=== PATIENT | male | born 2000 | race African-American/Black ===

== ENCOUNTER 2019-08-20 13:55 | Emergency (ER) | payer MEDICAID ==
[~2019-08-20] VITALS: Ht 175.3 cm; Wt 52.3 kg
[2019-08-20 14:14] VITALS: BP 116/70
[2019-08-20 14:39] LABS: GLUCOSE,POINT OF CARE 90 MG/DL (70-110)
[2019-08-20 14:59] LABS: BASOPHILS % (AUTO) 0.9 % (0.0-2.0); EOSINOPHILS % (AUTO) 3.4 % (1.0-6.0); HEMOGLOBIN 13.9 g/dL (13.5-17.5); LYMPHOCYTES # (AUTO) 2.4 K/uL (1.0-4.8); LYMPHOCYTES % (AUTO) 38.7 % (22.0-44.0); MEAN CORPUSCULAR HEMOGLOBIN 28.5 pg (26.0-34.0); MEAN CORPUSCULAR HGB CONC 32.4 G/dL (31.0-37.0); MEAN CORPUSCULAR VOLUME 88 fL (80-100); MONOCYTES # (AUTO) 0.6 K/uL (0.1-1.0); MONOCYTES % (AUTO) 9.3 % (2.0-9.0); NEUTROPHILS % (AUTO) 47.7 % (40.0-70.0); PLATELET COUNT (AUTO) 440 K/uL (150-450); RED CELL DISTRIBUTION WIDTH 15.7 % (11.5-14.5)
[2019-08-20 15:16] LABS: ANION GAP 12 mmol/L (8-16); CALCIUM, TOTAL 9.2 mg/dL (8.8-10.5); CARBON DIOXIDE 24 mmol/L (22-29); CHLORIDE 105 mmol/L (98-107); CREATININE 0.88 mg/dL (0.60-1.30); GLOMERULAR FILTR. RATE CALC > 60 mL/min (>60); GLUCOSE,RANDOM 75 mg/dL (70-110); POTASSIUM 3.6 mmol/L (3.5-5.1); SODIUM SERUM 141 mmol/L (136-145); UREA NITROGEN, BLOOD 20 mg/dL (7-18)
[2019-08-20 15:21] LABS: ALANINE AMINOTRANSFERASE 24 U/L (12-78); ALBUMIN 4.3 g/dL (3.4-5.0); ALKALINE PHOSPHATASE 110 U/L (46-116); ASPARTATE AMINOTRANSFERASE 31 U/L (15-37); BILIRUBIN,TOTAL 0.6 mg/dL (0.1-1.0); TOTAL PROTEIN, SERUM 8.1 g/dL (6.4-8.2)
== END 2019-08-20 15:45 | disposition home or self-care (01) ==
LOC: EMS 13:58
DX: F29 Unspecified psychosis not due to a substance or known physiological condition (principal); F15.10 Other stimulant abuse, uncomplicated; F17.210 Nicotine dependence, cigarettes, uncomplicated
CPT/HCPCS: 80053; 82962; 85025; 99284; G0480

== ENCOUNTER 2019-08-20 18:00 | Inpatient (IN) | payer MEDICAID ==
[~2019-08-20] VITALS: Ht 175.3 cm; Wt 56.0 kg
[2019-08-20] MEDS ORDERED: ACETAMINOPHEN 325 MG TABLET PO PRN (19:45)
[2019-08-20] MEDS ORDERED: TUBERCULIN, PURIFIED PROTEIN DERIVATIVE 5 TU/0.1 ML SYRINGE ID ONE (19:45)
[2019-08-20] MEDS ORDERED: GuaiFENesin/D-METHORPHAN [SUGAR-FREE] 200-20MG/10 ML SYRUP UDCUP PO PRN (19:45)
[2019-08-20] MEDS ORDERED: PROMETHAZINE HCL 25 MG TABLET PO PRN (19:45)
[2019-08-20] MEDS ORDERED: LOPERAMIDE HCL 2 MG CAPSULE PO PRN (19:45)
[2019-08-20] MEDS ORDERED: MAGNESIUM HYDROXIDE SUSPENSION 30 ML UDCUP PO PRN (19:45)
[2019-08-20] MEDS ORDERED: HydrOXYzine PAMOATE 50 MG CAPSULE PO PRN (19:45)
[2019-08-20] MEDS ORDERED: OLANZapine 5 MG RAPDIS TABLET PO PRN (19:45)
[2019-08-20] MEDS ORDERED: MAG HYDROX/AL HYDROX/SIMETH ES 30 ML SUSPENSION UDCUP PO PRN (19:45)
[2019-08-20] MEDS ORDERED: ZOLPIDEM TARTRATE 10 MG TABLET PO PRN (19:45)
[2019-08-20] MEDS: OLANZapine 5 MG RAPDIS TABLET PO SCH (21:56)
[2019-08-20] MEDS: THIAMINE HCL 100 MG TABLET PO SCH (21:56)
[2019-08-20 22:26] VITALS: BP 120/66
[2019-08-20] MEDS ORDERED: INFLUENZA VIRUS VACCINE QVS 2019-20 (3YR+)/PF 60 MCG/0.5 ML SYRINGE IM ONE (22:45)
[2019-08-21 05:50] VITALS: BP 110/68
[2019-08-21 07:44] LABS: BASOPHILS % (AUTO) 1.1 % (0.0-2.0); EOSINOPHILS % (AUTO) 4.8 % (1.0-6.0); HEMOGLOBIN 13.2 g/dL (13.5-17.5); LYMPHOCYTES # (AUTO) 2.9 K/uL (1.0-4.8); LYMPHOCYTES % (AUTO) 49.7 % (22.0-44.0); MEAN CORPUSCULAR HEMOGLOBIN 28.5 pg (26.0-34.0); MEAN CORPUSCULAR HGB CONC 32.2 G/dL (31.0-37.0); MEAN CORPUSCULAR VOLUME 89 fL (80-100); MONOCYTES # (AUTO) 0.6 K/uL (0.1-1.0); MONOCYTES % (AUTO) 10.3 % (2.0-9.0); NEUTROPHILS % (AUTO) 34.1 % (40.0-70.0); PLATELET COUNT (AUTO) 414 K/uL (150-450); RED BLOOD CELL COUNT(AUTO) 4.64 MIL/uL (4.50-5.90); RED CELL DISTRIBUTION WIDTH 16.1 % (11.5-14.5)
[2019-08-21 07:53] LABS: HEMOGLOBIN A1C 5.6 % (3.8-5.6)
[2019-08-21 08:08] LABS: ALANINE AMINOTRANSFERASE 22 U/L (12-78); ALKALINE PHOSPHATASE 104 U/L (46-116); ANION GAP 6 mmol/L (8-16); ASPARTATE AMINOTRANSFERASE 23 U/L (15-37); BILIRUBIN,TOTAL 0.4 mg/dL (0.1-1.0); CALCIUM, TOTAL 9.3 mg/dL (8.8-10.5); CARBON DIOXIDE 27 mmol/L (22-29); CHLORIDE 107 mmol/L (98-107); CHOL/HDL RATIO 2.3 (4.2-7.3); CHOLESTEROL 172 mg/dL (131-200); CREATININE 0.88 mg/dL (0.60-1.30); FREE T4 (FREE THYROXINE) 1.02 ng/dL (0.76-1.46); GLOMERULAR FILTR. RATE CALC > 60 mL/min (>60); GLUCOSE,RANDOM 84 mg/dL (70-110); HDL CHOLESTEROL 75 mg/dL (40-60); LDL CHOL (CALC.) 87 mg/dL (0-130); POTASSIUM 4.4 mmol/L (3.5-5.1); SODIUM SERUM 140 mmol/L (136-145); THYROID STIMULATING HORMONE 0.91 uIU/mL (0.36-3.74); TOTAL PROTEIN, SERUM 7.6 g/dL (6.4-8.2); TRIGLYCERIDES 49 mg/dL (15-150); UREA NITROGEN, BLOOD 15 mg/dL (7-18)
[2019-08-21] MEDS: NICOTINE 21 MG/24 HOUR PATCH TD SCH (09:00)
[2019-08-21] MEDS: FOLIC ACID 1 MG TABLET PO SCH ×2 (09:00→09:45)
[2019-08-21] MEDS: NALTREXONE HCL 50 MG TABLET PO SCH ×2 (09:00→09:45)
[2019-08-21] MEDS: THIAMINE HCL 100 MG TABLET PO SCH ×3 (09:00→16:53)
[2019-08-21] MEDS: MULTIVITAMINS WITH MINERALS, THERAPEUTIC TABLET PO SCH ×2 (09:00→09:45)
[2019-08-21 15:30] VITALS: BP 121/65
[2019-08-21] MEDS: OLANZapine 5 MG RAPDIS TABLET PO SCH (20:53)
[2019-08-22 06:10] VITALS: BP 114/61
[2019-08-22 08:12] VITALS: BP 121/65
[2019-08-22] MEDS: NICOTINE 21 MG/24 HOUR PATCH TD SCH (09:00)
[2019-08-22] MEDS: FOLIC ACID 1 MG TABLET PO SCH (09:17)
[2019-08-22] MEDS: MULTIVITAMINS WITH MINERALS, THERAPEUTIC TABLET PO SCH (09:17)
[2019-08-22] MEDS: THIAMINE HCL 100 MG TABLET PO SCH ×2 (09:17→16:59)
[2019-08-22] MEDS: NALTREXONE HCL 50 MG TABLET PO SCH (09:18)
[2019-08-22 16:46] VITALS: BP 124/60
[2019-08-22] MEDS: LORazepam 2 MG TABLET PO PRN (17:35)
[2019-08-22] MEDS: OLANZapine 10 MG RAPDIS TABLET PO SCH (21:30)
[2019-08-22] MEDS: DIVALPROEX SODIUM 500 MG ER TABLET PO SCH (21:32)
[2019-08-23 05:49] VITALS: BP 122/61
[2019-08-23] MEDS: FOLIC ACID 1 MG TABLET PO SCH (08:10)
[2019-08-23] MEDS: NALTREXONE HCL 50 MG TABLET PO SCH (08:10)
[2019-08-23] MEDS: THIAMINE HCL 100 MG TABLET PO SCH ×2 (08:10→17:18)
[2019-08-23] MEDS: NICOTINE 21 MG/24 HOUR PATCH TD SCH (08:10)
[2019-08-23] MEDS: MULTIVITAMINS WITH MINERALS, THERAPEUTIC TABLET PO SCH (08:10)
[2019-08-23 08:28] VITALS: BP 94/55
[2019-08-23 16:10] VITALS: BP 112/65
[2019-08-23] MEDS: LORazepam 2 MG TABLET PO PRN (17:18)
[2019-08-23] MEDS ORDERED: OLAN10TA22 PO (18:27)
[2019-08-23] MEDS ORDERED: NALT50TA PO (18:27)
[2019-08-23] MEDS ORDERED: DIVA500T52 PO (18:27)
[2019-08-23] MEDS: OLANZapine 10 MG RAPDIS TABLET PO SCH (20:20)
[2019-08-23] MEDS: DIVALPROEX SODIUM 500 MG ER TABLET PO SCH (20:20)
[2019-08-24 00:51] VITALS: BP 120/64
[2019-08-24] MEDS: MULTIVITAMINS WITH MINERALS, THERAPEUTIC TABLET PO SCH (08:03)
[2019-08-24] MEDS: THIAMINE HCL 100 MG TABLET PO SCH (08:03)
[2019-08-24] MEDS: FOLIC ACID 1 MG TABLET PO SCH (08:03)
[2019-08-24 08:35] VITALS: BP 112/53
[2019-08-24] MEDS: NICOTINE 21 MG/24 HOUR PATCH TD SCH (09:00)
[2019-08-24] MEDS: NALTREXONE HCL 50 MG TABLET PO SCH (09:02)
== END 2019-08-24 14:54 | disposition home or self-care (01) | DRG 750 ==
LOC: EMS 18:00 → B3A 20:08 → B2S 20:08 → UNDOADMIN 20:08
PROVIDERS: ADMIT Psychiatry & Neurology Psychiatry; ATTEND Psychiatry & Neurology Psychiatry
DX: F25.9 Schizoaffective disorder, unspecified (principal); R45.851 Suicidal ideations; Z59.0 Homelessness; Z91.19 Patient's noncompliance with other medical treatment and regimen; F17.210 Nicotine dependence, cigarettes, uncomplicated; Z28.21 Immunization not carried out because of patient refusal; D64.9 Anemia, unspecified; F15.10 Other stimulant abuse, uncomplicated
CPT/HCPCS: 83036; 84439; 84443; 86592; 87081